=== PATIENT | male | born 1945 | race Caucasian/White ===

== ENCOUNTER 2017-08-17 19:24 | Emergency (ER) | payer OTHER ==
[~2017-08-17] VITALS: Ht 185.4 cm; Wt 109.9 kg
[~2017-08-17 19:24] MED LIST: INSULIN; TRAMADOL 50 MG50 MG PO
[2017-08-17] MEDS ORDERED: SIMVASTATIN40 MG PO (19:51)
[2017-08-17] MEDS ORDERED: CARVEDILOL12.5 MG PO (19:51)
[2017-08-17] MEDS ORDERED: CYMBALTA30 MG PO (19:52)
[2017-08-17] MEDS ORDERED: CLORPRES PO (19:52)
[2017-08-17] MEDS ORDERED: GLUCOPHAGE1000 MG PO (19:52)
[2017-08-17] MEDS ORDERED: GLUCOTROL5 MG PO (19:52)
[2017-08-17 19:56] LABS: ABSOLUTE EOSINOPHILS 0.1 thou/uL (0.0-0.7); ABSOLUTE MONOCYTES 0.5 thou/uL (0.0-1.2); ABSOLUTE NEUTROPHILS 7.9 thou/uL (1.6-8.1); BASOPHILS 0.4 %; HEMATOCRIT 43.6 % (42.0-52.0); HEMOGLOBIN 14.6 gm/dL (14.0-18.0); LYMPHOCYTES 10.7 %; MCH 30.9 pg (26.0-34.0); MCHC 33.4 g/dL (28.0-37.0); MCV 92.6 fL (80.0-100.0); MONOCYTES 5.5 %; MPV 7.3 fl. (7.2-11.1); NUCLEATED RBCS 0 /100WBC; PLATELET COUNT* 214 thou/uL (150-400); POLYS 82.4 %; RDW-CV 13.2 % (10.5-14.5); WBC 9.6 thou/uL (4.0-11.0)
[2017-08-17 20:04] LABS: ANION GAP 7 mmol/L (7-16); BUN 18 mg/dL (7-18); CALCIUM 9.1 mg/dL (8.5-10.1); CHLORIDE 98 mmol/L (98-107); CO2 31 mmol/L (21-32); CREATININE 0.9 mg/dL (0.6-1.3); GLUCOSE 83 mg/dL (70-99); POTASSIUM 4.3 mmol/L (3.5-5.1); SODIUM 136 mmol/L (136-145)
[2017-08-17 20:12] LABS: ALKALINE PHOSPHATASE 58 U/L (46-116); SGOT 27 U/L (15-37); SGPT 38 U/L (30-65); TOTAL BILIRUBIN 0.2 mg/dL (<0.1-1.0); TOTAL PROTEIN 7.8 g/dL (6.4-8.2); TROPONIN-I LEVEL <0.06 ng/mL (<0.06)
[2017-08-17 21:33] VITALS: BP 127/75
--- NOTE | 2017-08-19 06:15 | EKG ---
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
== END 2017-08-17 21:33 | disposition home or self-care (01) ==
LOC: M.ERS 19:24
PROVIDERS: Emergency Medicine
DX: E11.649 Type 2 diabetes mellitus with hypoglycemia without coma (principal); I10 Essential (primary) hypertension; Z88.8 Allergy status to other drugs, medicaments and biological substances; Z79.4 Long term (current) use of insulin